=== PATIENT | female | born 1980 | race African-American/Black ===

== ENCOUNTER 2018-01-29 16:53 | Observation (INO) | payer OTHER ==
[2018-01-29 17:02] VITALS: BMI 23.8
--- NOTE | 2018-01-29 17:07 | PDOC ---
Attending Attestation - HPI HPI: 01/29/18 17:53 The patient is a 37 year old female presenting to the ER with left lower abdominal pain since this morning. Patient describes the left lower abdominal pain as nonradiating and 5/10 in severity in the morning, which increased in severity to 10/10 later today after urinating. Patients last meal was prior to arriving to the ER. Patient denies taking any pain meds today. Patient has a history of kidney stones 3 years ago, which she passed after taking medication. Patient is also complaining of a tingling sensation in both of her legs. The patient denies chest pain, shortness of breath, headache and dizziness. Denies fever, chills, nausea, vomit, diarrhea and constipation. Endorses dysuria but denies frequency, urgency and hematuria. Allergies: NKA Past surgical history: Tubal ligation Social history: None reported. <Marielle Mary - Last Filed: 01/29/18 17:53> - Resident Resident Name: Luis Armando Thurman - Physicial Exam PE: 01/29/18 20:08 Agree with resident exam. Patient is alert and oriented x 3 and appears uncomfortable. + diffuse abdominal tenderness, worse in the LLQ. Pelvic exam: + whitish vaginal discharge. + CMT, + L adnexal tenderness. - Medical Decision Making 01/29/18 20:16 Pt presents to the ED complaining of abdominal pain, nausea and vomiting. + LLQ tenderness. + CMT and adnexal tenderness. Concern for UTI, PID, TOA, less likely intestinal pathology. LActate is 3.4. Will treat with IV antibiotics, check transvaginal US and CT abdomen if US is negative, admit for observation and continued antibiotic treatment. <Gladis Boss - Last Filed: 01/29/18 20:21>
[2018-01-29] MEDS ORDERED: ACETAMINOPHEN 1000 MG/100 ML VIAL (NON FORMULARY) IVPB ONE (17:37)
--- NOTE | 2018-01-29 17:56 | PDOC ---
History of Present Illness - General Chief Complaint: Urinary Problem Stated Complaint: ABDOMINAL PAIN Time Seen by Provider: 01/29/18 17:00 - History of Present Illness Initial Comments: 01/29/18 20:13 Patient is a 37 year old female with past medical history of SLE, Hypothyroidism and Seizures (s/p clipping of aneurysm in 2004), presented with sudden onset severe cramping LLQ/suprapubic pain that started upon waking up this morning. Patient noted 10/10 LLQ sharp pain radiating to the suprapubic area, down to the vagina. No medications taken. Patient was still able to eat lunch, but pain became unbearable and she called the ambulance. While she was being transferred to the stretcher by EMS, she noted pain in abdomen radiating down to her inner thighs, causing numbness of both legs. She noted history of kidney stones 3 years ago, where she was given medications and was able to pass it out. Patient denies fevers, chills, nausea, vomiting, headache, dizziness, chest pain, SOB, palpitations, dysuria, hematuria, vaginal discharge. Past History - Past Medical History Allergies/Adverse Reactions: Allergies Allergy/AdvReac Type Severity Reaction Status Date / Time No Known Allergies Allergy Verified 01/29/18 16:59 Home Medications: Ambulatory Orders Levothyroxine [Synthroid -] 0.75 mcg PO DAILY 09/24/15 Hydroxychloroquine So4 [Plaquenil -] 200 mg PO BID 01/30/18 Lamotrigine [Lamictal] 25 mg PO DAILY 01/30/18 Asthma: Yes COPD: No Kidney Stones: Yes Seizures: Yes Thyroid Disease: Yes (hypothYroid) - Surgical History Abdominal Surgery: No Appendectomy: No Cardiac Surgery: No Cholecystectomy: No Lung Surgery: No Neurologic Surgery: Yes (ANEURYSM with clip) - Immunization History Td Vaccination: Yes TDAP Vaccination: Yes Immunization Up to Date: Yes - Suicide/Smoking/Psychosocial Hx Smoking Status: No Smoking History: Current every day smoker Years of Tobacco Use: 0 Have you smoked in the past 12 months: Yes Number of Cigarettes Smoked Daily: 4 Cigars Per Day: 0 Information on smoking cessation initiated: No Hx Alcohol Use: No Drug/Substance Use Hx: No Substance Use Type: None Review of Systems - Review of Systems Constitutional: No: Chills, Fever, Weakness HEENTM: No: Blurred Vision, Ear Discharge, Nose Congestion, Throat Swelling, Difficulty Swallowing Respiratory: No: Cough, Shortness of Breath Cardiac (ROS): No: Chest Pain, Edema, Palpitations ABD/GI: Yes: Poor Appetite, Abdominal cramping. No: Constipated, Diarrhea, Nausea, Vomiting : No: Burning, Dysuria, Discharge Musculoskeletal: No: Back Pain, Muscle Pain Neurological: Yes: Numbness. No: Headache, Tingling, Weakness *Physical Exam - Vital Signs Last Vital Signs Temp Pulse Resp BP Pulse Ox 100.1 F H 96 H 20 98/63 100 01/29/18 17:00 01/29/18 17:00 01/29/18 17:00 01/29/18 17:00 01/29/18 17:00 - Physical Exam Comments: 01/29/18 20:14 General: awake, alert, oriented, crying in pain Head: no signs of acute trauma HEENT: PERRLA, EOMI, sclerae anicteric, Neck: soft, supple, trachea midline, without LAD Lung: clear to auscultation bilaterally Heart: regular rate and rhythm, normal S1/S2, no m,r,g Abdomen: soft, +diffuse tenderness on all quadrants, worst on the LLQ, nondistended, NABS Ext: +2 pulses, warm, no cyanosis, clubbing or edema Neuro: AAOx3, CN II-XII intact, motor 5/5 bilateral UE, 4/5 on bilateral LE limited by LLQ pain, sensation intact, normal gait Pelvic exam: cervix closed with copious whitish discharge, no lesions, no masses. IE:+cervical motion tenderness, +left adnexal tenderness Moderate Sedation - Procedure Monitoring Vital Signs: Procedure Monitoring Vital Signs Temperature 100.1 F H 01/29/18 17:00 Pulse Rate 96 H 01/29/18 17:00 Respiratory Rate 20 01/29/18 17:00 Blood Pressure 98/63 01/29/18 17:00 O2 Sat by Pulse Oximetry (%) 100 01/29/18 17:00 ED Treatment Course - LABORATORY CBC & Chemistry Diagram: 01/31/18 06:15 01/31/18 06:15 Medical Decision Making - Medical Decision Making 01/29/18 17:52 Patient is a 37 year old female with past medical history of SLE, Hypothyroidism and Seizures (s/p clipping of aneurysm in 2004), presented with sudden onset severe cramping LLQ/suprapubic pain that started upon waking up this morning. DDx include but not limited to UTI, nephrolithiasis, ectopic , ovarian cyst, PID, TOA, diverticulosis, colitis CBC, CMP, lactic acid, beta HCG UA, UCx Blood culture IV Tylenol for pain IVF boluses 01/29/18 19:16 Pelvic exam (done with Dr. Boss) Speculum exam: cervix closed with copious whitish discharge, no lesions, no masses Bimanual exam: +cervical motion tenderness, +left adnexal tenderness Transvaginal ultrasound Gonorrhea/chlamydia amplification Started Cefoxitin 2g q6h Doxycycline 100mg q12h IV morphine 4mg 01/29/18 01/29/18 01/29/18 18:00 18:00 18:00 RBC 3.51 L Neutrophils % 87.5 H D Lymphocytes % 7.6 L D Random Glucose 111 H Lactic Acid Urine Protein 1+ H D Urine Urobilinogen 4.0 e.u/dl H Ur Leukocyte Esterase 1+ H D 01/29/18 18:00 RBC Neutrophils % Lymphocytes % Random Glucose Lactic Acid 3.4 H* Urine Protein Urine Urobilinogen Ur Leukocyte Esterase 01/29/18 22:33 REpeat lactic acid Continue IVF TVS (preliminary): No definite evidence of tubo-ovarian abscess No evidence of ovarian torsion. Heterogenous fundal 2.2 cm area of echogenicity most likely represents a fibroid. Subcentimeter hypoechoic areas in the uterus may be due to fibroids. Nabothian cystic process in the cervix. Left ovary 2.0 cm cystic process. 01/29/18 23:[address] Romero. Patient for obs admission. To continue antibiotics. Dr. Romero will see patient in the morning. *DC/Admit/Observation/Transfer Diagnosis at time of Disposition: PID (pelvic inflammatory disease) UTI (urinary tract infection) Qualifiers: Urinary tract infection type: acute cystitis Hematuria presence: with hematuria Qualified Code(s): N30.01 - Acute cystitis with hematuria - Discharge Dispostion Condition at time of disposition: Stable Decision to Admit order: Yes - Referrals - Patient Instructions - Post Discharge Activity
[2018-01-29] MEDS ORDERED: ACETAMINOPHEN INJECTION 100 ML IVPB ONE (17:57)
[2018-01-29 18:10] LABS: BASO % 0.4 % (0-2.0); EOS % 0.3 % (0-4.5); HEMATOCRIT 32.4 % (32.4-45.2); HEMOGLOBIN 11.5 GM/dL (10.7-15.3); LYMPH % 7.6 % (8-40); MCH 32.7 pg (25.7-33.7); MCHC 35.4 g/dl (32.0-36.0); MEAN CELL VOLUME 92.6 fl (80-96); MEAN PLT VOLUME 10.3 fl (7.5-11.1); MONO % 4.2 % (3.8-10.2); NEUT % 87.5 % (42.8-82.8); PLATELET COUNT 170 K/MM3 (134-434); RBC 3.51 M/mm3 (3.60-5.2); RDW 12.6 % (11.6-15.6); WHITE BLOOD COUNT 8.6 K/mm3 (4.0-10.0)
[2018-01-29 18:12] LABS: URINE APPEARANCE CLEAR; URINE BILIRUBIN NEGATIVE (<2.0 mg/dL); URINE COLOR YELLOW; URINE GLUCOSE (UA) NEGATIVE (NEGATIVE); URINE KETONE NEGATIVE (NEGATIVE); URINE LEUK ESTERASE 1+ (NEGATIVE); URINE NITRITE POSITIVE (NEGATIVE); URINE PROTEIN 1+ (NEGATIVE); URINE UROBILINOGEN 4.0 E.U/dl mg/dL (0.2-1.0)
[2018-01-29] MEDS ORDERED: SODIUM CHLORIDE 1,000 ML IV STA ×2 (18:20→20:23)
[2018-01-29 18:25] LABS: EPI CELLS RARE /HPF (FEW); URINE BACTERIA RARE /hpf (NONE SEEN); URINE MUCUS RARE
[2018-01-29 18:47] LABS: ALBUMIN 3.8 g/dl (3.4-5.0); ALK PHOS 109 U/L (45-117); ANION GAP 12 MMOL/L (8-16); BLOOD UREA NITROGEN 8 mg/dL (7-18); CALCIUM 8.6 mg/dL (8.5-10.1); CHLORIDE 103 mmol/L (98-107); CO2 22 mmol/L (21-32); CREATININE 0.9 mg/dL (0.55-1.3); GLUCOSE,RANDOM 111 mg/dL (74-106); POTASSIUM 3.6 mmol/L (3.5-5.1); SGOT/AST 30 U/L (15-37); SGPT/ALT 17 U/L (13-61); SODIUM 137 mmol/L (136-145); TOT PROT 7.5 g/dl (6.4-8.2)
[2018-01-29] MEDS ORDERED: morphine CARPU-JECT 4 MG/1 ML DISP.SYRIN IVPUSH ONE (19:14)
[2018-01-29] MEDS ORDERED: morphine SULFATE 4 MG/ML VIAL ONE (19:43)
[2018-01-29] MEDS ORDERED: SODIUM CHLORIDE 1,000 ML IV SCH (20:00)
[2018-01-29] MEDS ORDERED: DOXYCYCLINE HYCLATE 100 MG VIAL ONE (20:02)
[2018-01-29] MEDS: DOXYCYCLINE INJECTION 100 MG in DEXTROSE 5%-WATER - 100 ML IVPB SCH (20:09)
[2018-01-29] MEDS ORDERED: CEFOXITIN SODIUM 2 GM in DEXTROSE 5%-WATER - 100 ML IVPB SCH (21:00)
--- NOTE | 2018-01-29 23:06 | HP ---
CHIEF COMPLAINT: Abdominal pain PCP: Dr. Casper Lock HISTORY OF PRESENT ILLNESS: 37 year- old female, s/p tubal ligation, and with a PMH also significant for SLE, hypothyroidism, seizure disorder s/p aneurysm repair, migraines, renal calculi, and asthma. Patient presented to the ED with a complaint of acute onset of abdominal pain this morning. The pain increased in severity after patient urinated. Patient describes dysuria and urgency. LMP 01/23/18. Denies fever, sweats, chills. Denies nausea, vomiting, diarrhea, constipation. ER course was notable for: (1) Lactic acid 3.4-->2.0 (2) Cefoxitin x 1; doxycycline x 1 (3) NS x 2L Recent Travel: No PAST MEDICAL HISTORY: SLE Hypothyroidism Seizure disorder Asthma Renal calculi Migraines PAST SURGICAL HISTORY: Aneurysm repair Tubal ligation Social History: Smoking: Alcohol: Drugs: Family History: Allergies No Known Allergies Allergy (Verified 01/29/18 16:59) HOME MEDICATIONS: have not been verified; patient states she takes Plaquenil, Lamictal, and an unidentified migraine medication; need to verify with [facility] Home Medications Medication Instructions Recorded Levothyroxine [Synthroid -] 0.75 mcg PO DAILY 09/24/15 Aspirin [ASA -] 81 mg PO DAILY 01/29/18 REVIEW OF SYSTEMS CONSTITUTIONAL: Absent: fever, chills, diaphoresis, generalized weakness, malaise, loss of appetite, weight change HEENT: Absent: rhinorrhea, nasal congestion, throat pain, throat swelling, difficulty swallowing, mouth swelling, ear pain, eye pain, visual changes CARDIOVASCULAR: Absent: chest pain, syncope, palpitations, irregular heart rate, lightheadedness , peripheral edema RESPIRATORY: Absent: cough, shortness of breath, dyspnea with exertion, orthopnea, wheezing, stridor, hemoptysis GASTROINTESTINAL: Absent: abdominal pain, abdominal distension, nausea, vomiting, diarrhea, constipation, melena, hematochezia GENITOURINARY: +abdominal pain, nausea, vomiting, LLQ tenderness, dysuria, urgency Absent: frequency, hesitancy, hematuria, flank pain, genital pain MUSCULOSKELETAL: Absent: myalgia, arthralgia, joint swelling, back pain, neck pain SKIN: Absent: rash, itching, pallor HEMATOLOGIC/IMMUNOLOGIC: Absent: easy bleeding, easy bruising, lymphadenopathy, frequent infections ENDOCRINE: Absent: unexplained weight gain, unexplained weight loss, heat intolerance, cold intolerance NEUROLOGIC: Absent: headache, focal weakness or paresthesias, dizziness, unsteady gait, seizure, mental status changes, bladder or bowel incontinence PSYCHIATRIC: Absent: anxiety, depression, suicidal or homicidal ideation, hallucinations. PHYSICAL EXAMINATION Vital Signs - 24 hr 01/29/18 17:00 Temperature 100.1 F H Pulse Rate 96 H Respiratory 20 Rate Blood Pressure 98/63 O2 Sat by Pulse 100 Oximetry (%) GENERAL: Awake, alert, and fully oriented, in no acute distress. HEAD: Normal with no signs of trauma. EYES: Pupils equal, round and reactive to light, extraocular movements intact, sclera anicteric, conjunctiva clear. No lid lag. EARS, NOSE, THROAT: Ears normal, nares patent, oropharynx clear without exudates. Moist mucous membranes. LUNGS: Breath sounds equal, clear to auscultation bilaterally. No wheezes, and no crackles. No accessory muscle use. HEART: Regular rate and rhythm, S1 and S2 ABDOMEN: Soft, diffusely tender, +guarding : Pelvic exam deferred MUSCULOSKELETAL: Normal range of motion at all joints. No bony deformities or tenderness. No CVA tenderness. UPPER EXTREMITIES: 2+ pulses, warm, well-perfused. No cyanosis. No clubbing. No peripheral edema. LOWER EXTREMITIES: 2+ pulses, warm, well-perfused. No calf tenderness. No peripheral edema. NEUROLOGICAL: Cranial nerves II-XII intact. Normal speech. Laboratory Results - last 24 hr 01/29/18 01/29/18 01/29/18 18:00 18:00 18:00 WBC 8.6 RBC 3.51 L Hgb 11.5 Hct 32.4 MCV 92.6 MCH 32.7 D MCHC 35.4 RDW 12.6 D Plt Count 170 D MPV 10.3 D Absolute Neuts (auto) 7.5 Neutrophils % 87.5 H D Lymphocytes % 7.6 L D Monocytes % 4.2 Eosinophils % 0.3 D Basophils % 0.4 Nucleated RBC % 0 Sodium 137 Potassium 3.6 Chloride 103 Carbon Dioxide 22 Anion Gap 12 BUN 8 Creatinine 0.9 Creat Clearance w eGFR > 60 Random Glucose 111 H Lactic Acid Calcium 8.6 Total Bilirubin 1.0 AST 30 ALT 17 Alkaline Phosphatase 109 Total Protein 7.5 Albumin 3.8 Beta HCG, Quant < 1.0 Urine Color Yellow Urine Appearance Clear Urine pH 8.0 D Ur Specific [place] 1.015 Urine Protein 1+ H D Urine Glucose (UA) Negative Urine Ketones Negative Urine Blood Negative Urine Nitrite Positive Urine Bilirubin Negative Urine Urobilinogen 4.0 e.u/dl H Ur Leukocyte Esterase 1+ H D Urine WBC (Auto) 47 Urine RBC (Auto) 2 Ur Epithelial Cells Rare Urine Bacteria Rare Urine Mucus Rare 01/29/18 01/29/18 18:00 22:20 WBC RBC Hgb Hct MCV MCH MCHC RDW Plt Count MPV Absolute Neuts (auto) Neutrophils % Lymphocytes % Monocytes % Eosinophils % Basophils % Nucleated RBC % Sodium Potassium Chloride Carbon Dioxide Anion Gap BUN Creatinine Creat Clearance w eGFR Random Glucose Lactic Acid 3.4 H* 2.0 Calcium Total Bilirubin AST ALT Alkaline Phosphatase Total Protein Albumin Beta HCG, Quant Urine Color Urine Appearance Urine pH Ur Specific [place] Urine Protein Urine Glucose (UA) Urine Ketones Urine Blood Urine Nitrite Urine Bilirubin Urine Urobilinogen Ur Leukocyte Esterase Urine WBC (Auto) Urine RBC (Auto) Ur Epithelial Cells Urine Bacteria Urine Mucus ASSESSMENT/PLAN: 37 year- old female, s/p tubal ligation, and with a PMH also significant for SLE, hypothyroidism, seizure disorder s/p aneurysm repair, migraines, renal calculi, and asthma. Admitted for pelvic inflammatory disease and possible tubal ovarian abscess. NEED TO VERIFY HOME MEDICATIONS. Pelvic inflammatory disease +/- Tubal ovarian abscess --Transvaginal ultrasound (Imaging television announcer): no definite evidence of TOA but 2cm cystic process left ovary; fibroids --Pelvic exam in ED: copious white discharge, left adnexal tenderness, + cervical motion tenderness --will continue empiric antibiotics cefoxitin 2g q6h and doxy 100mg q12h --blood and urine cultures collected and sent; chlamydia and gonorrhea pending; esr, crp --DIRECTOR TELEVISION NEWS consult requested --ID consult requested UTI --+leuks, nitrites, pyuria --antibiotics as above Lactic acidosis --resolved with IV fluids SLE --need to verify Plaquenil dose with pharmacy Seizure disorder s/p aneurysm repair --need to verify lamictal dose with pharmacy Migraines --recently seen by Dr. Izaguirre for migraines and prescribed a daily medication, patient cannot recall name of medication or dosage; need to verify with pharmacy Hypothyroidism --TSH pending --continue levothyroxine Asthma --stable DVT prophylaxis: no chemical prophylaxis in event of surgical intervention; SCDs , oob, ambulation Visit type - Emergency Visit Emergency Visit: Yes ED Registration Date: 01/29/18 Care time: The patient presented to the Emergency Department on the above date and was hospitalized for further evaluation of their emergent condition. - New Patient This patient is new to me today: Yes Date on this admission: 01/30/18 - Critical Care Critical Care patient: No
[2018-01-30] MEDS: D5-1/2NS+20 MEQ KCL - 20 MEQ/1,000 ML INFUS.BAG IV SCH ×4 (00:07→23:35)
[2018-01-30] MEDS: CEFOXITIN SODIUM 2 GM in DEXTROSE 5%-WATER - 100 ML IVPB SCH ×4 (04:25→21:00)
[2018-01-30] MEDS: MORPHINE SULFATE 2 MG/ML VIAL IVPUSH PRN (05:05)
[2018-01-30] MEDS ORDERED: ONDANSETRON 4 MG/2 ML VIAL IVPB PRN (06:23)
[2018-01-30] MEDS: DOXYCYCLINE INJECTION 100 MG in DEXTROSE 5%-WATER - 100 ML IVPB SCH ×2 (06:53→18:33)
[2018-01-30] MEDS ORDERED: LEVOTHYROXINE NA 75 MCG TABLET (FP) PO SCH (07:00)
[2018-01-30 07:53] LABS: BASO % 0.1 % (0-2.0); HEMOGLOBIN 10.1 GM/dL (10.7-15.3); LYMPH % 4.7 % (8-40); MCH 30.3 pg (25.7-33.7); MCHC 32.5 g/dl (32.0-36.0); MEAN CELL VOLUME 93.3 fl (80-96); MEAN PLT VOLUME 10.2 fl (7.5-11.1); NEUT % 92.2 % (42.8-82.8); PLATELET COUNT 133 K/MM3 (134-434); RBC 3.32 M/mm3 (3.60-5.2); RDW 12.6 % (11.6-15.6); WHITE BLOOD COUNT 12.8 K/mm3 (4.0-10.0)
[2018-01-30] MEDS ORDERED: DOXYCYCLINE INJECTION 100 MG in DEXTROSE 5%-WATER - 100 ML IVPB SCH (08:00)
[2018-01-30 08:40] LABS: ALK PHOS 84 U/L (45-117); ANION GAP 11 MMOL/L (8-16); BILIRUBIN,TOTAL 0.9 mg/dL (0.2-1); BLOOD UREA NITROGEN 7 mg/dL (7-18); CALCIUM 7.6 mg/dL (8.5-10.1); CHLORIDE 105 mmol/L (98-107); CO2 23 mmol/L (21-32); CREATININE 0.7 mg/dL (0.55-1.3); GLUCOSE,RANDOM 133 mg/dL (74-106); MAGNESIUM 1.4 mg/dL (1.8-2.4); POTASSIUM 3.2 mmol/L (3.5-5.1); SGOT/AST 17 U/L (15-37); SGPT/ALT 15 U/L (13-61); SODIUM 138 mmol/L (136-145); TOT PROT 6.2 g/dl (6.4-8.2)
[2018-01-30] MEDS ORDERED: LEVOTHYROXINE NA 125 MCG TABLET (FP) PO SCH (10:00)
[2018-01-30 10:46] LABS: ANISOCYTOSIS 1+; MACROCYTOSIS 1+; OVALOCYTE 1+; PLATELET ESTIMATE DECREASED
[2018-01-30] MEDS ORDERED: LEVOTHYROXINE NA 125 MCG TABLET (FP) PO ONE (13:36)
[2018-01-30] MEDS ORDERED: ALBUTEROL SO4 8 GM HFA INHALER IH PRN (13:37)
--- NOTE | 2018-01-30 13:38 | PN ---
Progress Note, Physician Chief Complaint: AWAKE ALERT STILL C/O PELVIC PAIN - Current Medication List Current Medications: Active Medications Acetaminophen (Tylenol -) 650 mg PO Q6H PRN PRN Reason: PAIN LEVEL 1-5 Doxycycline Hyclate 100 mg/ (Dextrose) 100 mls @ 100 mls/hr IVPB Q12H SWAPNA Last Admin: 01/30/18 06:53 Dose: 100 mls/hr Cefoxitin Sodium 2 gm/ (Dextrose) 100 mls @ 200 mls/hr IVPB Q6H-IV SWAPNA; Protocol Potassium Chloride/Dextrose/Sod Cl (D5-1/2ns+20 Meq Kcl -) 20 meq in 1,000 mls @ 125 mls/hr IV ASDIR SWAPNA Last Admin: 01/30/18 08:46 Dose: 125 mls/hr Levothyroxine Sodium (Synthroid -) 125 mcg PO ONCE ONE Stop: 01/30/18 13:37 Levothyroxine Sodium (Synthroid -) 200 mcg PO DAILY@0700 SWAPNA Morphine Sulfate (Morphine Sulfate) 2 mg IVPUSH Q6H PRN PRN Reason: PAIN LEVEL 6-10 Last Admin: 01/30/18 05:05 Dose: 2 mg Ondansetron HCl (Zofran Injection) 4 mg IVPB Q6H PRN PRN Reason: NAUSEA Last Admin: 01/30/18 06:57 Dose: 4 mg - Objective Vital Signs: Vital Signs Temperature 98.8 F 01/30/18 07:52 Pulse Rate 95 H 01/30/18 09:28 Respiratory Rate 18 01/30/18 09:28 Blood Pressure 100/52 L 01/30/18 09:28 O2 Sat by Pulse Oximetry (%) 97 01/30/18 09:00 Constitutional: Yes: Mild Distress Eyes: Yes: WNL HENT: Yes: WNL Neck: Yes: WNL Cardiovascular: Yes: WNL Respiratory: Yes: WNL Gastrointestinal: Yes: Tenderness Genitourinary: Yes: WNL Musculoskeletal: Yes: WNL Extremities: Yes: WNL Edema: No Peripheral Pulses WNL: Yes Integumentary: Yes: WNL Wound/Incision: Yes: Clean/Dry Neurological: Yes: WNL ...Motor Strength: WNL Psychiatric: Yes: WNL Labs: CBC, BMP 01/30/18 06:30 01/30/18 06:30 Problem List - Problems (1) PID (pelvic inflammatory disease) Code(s): N73.9 - FEMALE PELVIC INFLAMMATORY DISEASE, UNSPECIFIED (2) UTI (urinary tract infection) Code(s): N39.0 - URINARY TRACT INFECTION, SITE NOT SPECIFIED Qualifiers: Urinary tract infection type: acute cystitis Hematuria presence: with hematuria Qualified Code(s): N30.01 - Acute cystitis with hematuria Assessment/Plan AWAIT PELVIC SONO IV ABX PAIN CONTROL G/C PENDING PO INTAKE TOELRATED
[2018-01-30] MEDS ORDERED: POTASSIUM CHLORIDE TABS 10 MEQ TABLET.ER (FP) PO ONE (13:44)
[2018-01-30] MEDS ORDERED: MAGNESIUM SULF 50% (8.12 MEQ/2 ML-1 GM VIAL) IVPB ONE (13:44)
--- NOTE | 2018-01-30 14:39 | CON.ID ---
Consult Consult Specialty:: infectious disease Referred by:: dr al Reason for Consultation:: abdominal pain and dysuria - History of Present Illness Chief Complaint: admitted yesterday with sudden onset LLQ pain and dysuria History of Present Illness: No diarrhea one episode vomiting due to pain meds no fevers had severe discomfort with urination that has resolved now more diffuse abdominal discomfort she is hungry in ED had +CMT on pelvic exam sexually active, one partner, intermittent condom use no history stds consents to hiv testing - History Source History Provided By: Patient, Medical Record Limitations to Obtaining History: No Limitations - Past Medical History 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, 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 Renal/: Yes: Renal Calculi ...: No Rheumatology: Yes: Lupus Endocrine: Yes: Hypothyroidism - Past Surgical History Additional Surgical History: aneurysm repair - Alcohol/Substance Use Hx Alcohol Use: No - Smoking History Smoking history: Current every day smoker Have you smoked in the past 12 months: Yes Aproximately how many cigarettes per day: 4 - Social History Usual Living Arrangement: With Significant Other ADL: Independent Occupation: unemployed Place of : [facility] History of Recent Travel: No Home Medications - Allergies Allergies/Adverse Reactions: Allergies Allergy/AdvReac Type Severity Reaction Status Date / Time No Known Allergies Allergy Verified 01/29/18 16:59 - Home Medications Home Medications: Ambulatory Orders Levothyroxine [Synthroid -] 0.75 mcg PO DAILY 09/24/15 Hydroxychloroquine So4 [Plaquenil -] 200 mg PO BID 01/30/18 Lamotrigine [Lamictal] 25 mg PO DAILY 01/30/18 Family Disease History - Family Disease History Other Family History: reports mother's torey iwkenroy lupus. fathrs with history of thyroid issues and aneurysms Review of Systems - Review of Systems Constitutional: reports: No Symptoms Eyes: reports: No Symptoms HENT: reports: No Symptoms Neck: reports: No Symptoms Cardiovascular: reports: No Symptoms Respiratory: reports: No Symptoms Gastrointestinal: reports: Abdominal Pain Genitourinary: reports: Dysuria Physical Exam Vital Signs: Vital Signs Temperature 98.8 F 01/30/18 07:52 Pulse Rate 95 H 01/30/18 09:28 Respiratory Rate 18 01/30/18 09:28 Blood Pressure 100/52 L 01/30/18 09:28 O2 Sat by Pulse Oximetry (%) 97 01/30/18 09:00 Constitutional: Yes: Well Nourished, No Distress, Calm Eyes: Yes: Conjunctiva Clear HENT: Yes: Atraumatic, Normocephalic Neck: Yes: Supple, Trachea Midline Cardiovascular: Yes: Regular Rate and Rhythm Respiratory: Yes: Regular, CTA Bilaterally Gastrointestinal: Yes: Normal Bowel Sounds, Soft, Tenderness (diffuse tenderness to palpation) ...Rectal Exam: Yes: Deferred Renal/: No: CVA Tenderness - Left, CVA Tenderness - Right Extremities: Yes: WNL Edema: No Psychiatric: Yes: Alert, Oriented Labs: CBC, BMP 01/30/18 06:30 01/30/18 06:30 Imaging - Results Ultrasound: Pending (transvag sonogram pending) Problem List - Problems (1) PID (pelvic inflammatory disease) Code(s): N73.9 - FEMALE PELVIC INFLAMMATORY DISEASE, UNSPECIFIED (2) UTI (urinary tract infection) Code(s): N39.0 - URINARY TRACT INFECTION, SITE NOT SPECIFIED Qualifiers: Urinary tract infection type: acute cystitis Hematuria presence: with hematuria Qualified Code(s): N30.01 - Acute cystitis with hematuria Assessment/Plan UTI r/o pid awaiting gyneoclogy evaluation f/u pelvic sonogram rpr, hiv test gc/chlamydia naat urine culture- +UA cefoxitin/doxycycline
[2018-01-30] MEDS ORDERED: PT OWN MED DRAWER 7, Y5N ONE ×3 (15:36→21:40)
[2018-01-30] MEDS: lamoTRIgine 25 MG TABLET PO SCH (16:02)
[2018-01-30] MEDS: MONTELUKAST NA 10 MG TABLET PO SCH (21:44)
[2018-01-30] MEDS: ACETAMINOPHEN 325 MG TABLET (FP) PO PRN (21:44)
[2018-01-31] MEDS: CEFOXITIN SODIUM 2 GM in DEXTROSE 5%-WATER - 100 ML IVPB SCH ×4 (02:19→21:28)
[2018-01-31] MEDS ORDERED: PT OWN MED DRAWER 7, Y5N ONE ×3 (06:08→21:16)
[2018-01-31] MEDS: ACETAMINOPHEN 325 MG TABLET (FP) PO PRN ×2 (06:11→21:34)
[2018-01-31] MEDS: LEVOTHYROXINE NA 100 MCG TABLET (FP) PO SCH (06:12)
[2018-01-31] MEDS: DOXYCYCLINE INJECTION 100 MG in DEXTROSE 5%-WATER - 100 ML IVPB SCH ×2 (06:17→18:14)
[2018-01-31] MEDS: D5-1/2NS+20 MEQ KCL - 20 MEQ/1,000 ML INFUS.BAG IV SCH ×2 (06:31→21:28)
[2018-01-31 07:41] LABS: HEMATOCRIT 28.3 % (32.4-45.2); MCH 30.2 pg (25.7-33.7); MEAN CELL VOLUME 94.5 fl (80-96); MEAN PLT VOLUME 10.4 fl (7.5-11.1); PLATELET COUNT 115 K/MM3 (134-434); RBC 2.99 M/mm3 (3.60-5.2); RDW 12.6 % (11.6-15.6); WHITE BLOOD COUNT 12.4 K/mm3 (4.0-10.0)
[2018-01-31 08:04] LABS: ALBUMIN 2.6 g/dl (3.4-5.0); ALK PHOS 107 U/L (45-117); ANION GAP 9 MMOL/L (8-16); BILIRUBIN,TOTAL 0.9 mg/dL (0.2-1); BLOOD UREA NITROGEN 6 mg/dL (7-18); CALCIUM 7.9 mg/dL (8.5-10.1); CHLORIDE 106 mmol/L (98-107); CO2 22 mmol/L (21-32); CREATININE 0.8 mg/dL (0.55-1.3); GLUCOSE,RANDOM 177 mg/dL (74-106); POTASSIUM 3.7 mmol/L (3.5-5.1); SGOT/AST 74 U/L (15-37); SGPT/ALT 51 U/L (13-61); SODIUM 136 mmol/L (136-145); TOT PROT 5.9 g/dl (6.4-8.2)
[2018-01-31 08:25] LABS: RPR NONREACTIVE (NONREACTIVE)
[2018-01-31] MEDS: lamoTRIgine 25 MG TABLET PO SCH (09:26)
[2018-01-31] MEDS: MORPHINE SULFATE 2 MG/ML VIAL IVPUSH PRN ×2 (11:23→17:51)
--- NOTE | 2018-01-31 11:24 | PN ---
Progress Note, Physician Chief Complaint: Abdominal pain Dysuria UTI History of Present Illness: NAD Fever on admission, now afebrile Seen by ID On IV abx To be seen by MOLD DRESSER U/S transvaginal + fibroids, otherwise unremarkable - Current Medication List Current Medications: Active Medications Acetaminophen (Tylenol -) 650 mg PO Q6H PRN PRN Reason: PAIN LEVEL 1-5 Last Admin: 01/31/18 06:11 Dose: 650 mg Albuterol Sulfate (Ventolin Hfa Inhaler -) 2 puff IH Q6H PRN PRN Reason: SHORT OF BREATH/WHEEZING Doxycycline Hyclate 100 mg/ (Dextrose) 100 mls @ 100 mls/hr IVPB Q12H SWAPNA Last Admin: 01/31/18 06:17 Dose: 100 mls/hr Cefoxitin Sodium 2 gm/ (Dextrose) 100 mls @ 200 mls/hr IVPB Q6H-IV SWAPNA; Protocol Last Admin: 01/31/18 09:26 Dose: 200 mls/hr Potassium Chloride/Dextrose/Sod Cl (D5-1/2ns+20 Meq Kcl -) 20 meq in 1,000 mls @ 125 mls/hr IV ASDIR SWAPNA Last Admin: 01/31/18 06:31 Dose: 125 mls/hr Lamotrigine (Lamictal -) 25 mg PO DAILY [facility] Last Admin: 01/31/18 09:26 Dose: 25 mg Levothyroxine Sodium (Synthroid -) 200 mcg PO DAILY@0700 [facility] Last Admin: 01/31/18 06:12 Dose: 200 mcg Montelukast Sodium (Singulair -) 10 mg PO HS [facility] Last Admin: 01/30/18 21:44 Dose: 10 mg Morphine Sulfate (Morphine Sulfate) 2 mg IVPUSH Q6H PRN PRN Reason: PAIN LEVEL 6-10 Last Admin: 01/30/18 05:05 Dose: 2 mg Ondansetron HCl (Zofran Injection) 4 mg IVPB Q6H PRN PRN Reason: NAUSEA Last Admin: 01/30/18 06:57 Dose: 4 mg - Objective Vital Signs: Vital Signs Temperature 98.4 F 01/31/18 06:00 Pulse Rate 78 01/31/18 09:41 Respiratory Rate 18 01/31/18 09:41 Blood Pressure 147/89 01/31/18 09:41 O2 Sat by Pulse Oximetry (%) 97 01/31/18 09:00 Constitutional: Yes: Well Nourished, No Distress, Calm Cardiovascular: Yes: Regular Rate and Rhythm Respiratory: Yes: Regular Gastrointestinal: Yes: Normal Bowel Sounds, Soft Musculoskeletal: Yes: WNL Extremities: Yes: WNL Edema: No Peripheral Pulses WNL: Yes Neurological: Yes: Alert, Oriented Psychiatric: Yes: Alert, Oriented Labs: CBC, BMP 01/31/18 06:15 01/31/18 06:15 Problem List - Problems (1) Hypothyroid Assessment/Plan: -Levothyroxine increased to 100 mcg po daily -repeat Thyroid profile in 4 weeks Code(s): E03.9 - HYPOTHYROIDISM, UNSPECIFIED (2) UTI (urinary tract infection) Assessment/Plan: -ID consult -IV abx UC: Microbiology 01/29/18 18:00 Urine - Urine Judge Urine Culture - Final Escherichia Coli 01/29/18 18:00 Blood - Peripheral Venous Blood Culture - Preliminary NO GROWTH OBTAINED AFTER 48 HOURS, INCUBATION TO CONTINUE FOR 3 DAYS. 01/29/18 18:00 Blood - Peripheral Venous Blood Culture - Preliminary NO GROWTH OBTAINED AFTER 48 HOURS, INCUBATION TO CONTINUE FOR 3 DAYS. Code(s): N39.0 - URINARY TRACT INFECTION, SITE NOT SPECIFIED Qualifiers: Urinary tract infection type: acute cystitis Hematuria presence: with hematuria Qualified Code(s): N30.01 - Acute cystitis with hematuria (3) Anemia Assessment/Plan: -Iron profile pending -2/2 to hypothyroidism? -monitor trend Code(s): D64.9 - ANEMIA, UNSPECIFIED Assessment/Plan see problem list self ambulatory
--- NOTE | 2018-01-31 14:52 | CON.OBG ---
Consult Consult Specialty:: SCR[employer] PRODUCT OWNER Reason for Consultation:: Lower abdominal pain - History of Present Illness Chief Complaint: Abdominal pain History of Present Illness: 37 year- old female, with prior salpingectomy for ectopic , and with a PMH also significant for SLE, hypothyroidism, seizure disorder s/p aneurysm repair, migraines, renal calculi, and asthma, Patient presented to the ED with a complaint of acute onset of abdominal pain this morning. The pain increased in severity after patient urinated. Patient describes dysuria and urgency. LMP 01/23/18. Denies fever, sweats, chills. Denies nausea, vomiting, diarrhea, constipation. SCR[employer] PRODUCT OWNER consulted. I came to see patient. She's lying comfortably in bed. 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 Salpingectomy - Alcohol/Substance Use Hx Alcohol Use: No History of Substance Use: reports: None - Smoking History Smoking history: Current every day smoker Have you smoked in the past 12 months: Yes Aproximately how many cigarettes per day: 4 - Social History Usual Living Arrangement: With Significant Other ADL: Independent Occupation: unemployed History of Recent Travel: No Home Medications - Allergies Allergies/Adverse Reactions: Allergies Allergy/AdvReac Type Severity Reaction Status Date / Time No Known Allergies Allergy Verified 01/29/18 16:59 - Home Medications Home Medications: Ambulatory Orders Levothyroxine [Synthroid -] 0.75 mcg PO DAILY 09/24/15 Hydroxychloroquine So4 [Plaquenil -] 200 mg PO BID 01/30/18 Lamotrigine [Lamictal] 25 mg PO DAILY 01/30/18 Family Disease History - Family Disease History Family History: Unremarkable Other Family History: reports mother's fmily iwth lupus. fathrs with history of thyroid issues and aneurysms Review of Systems - Review of Systems Constitutional: reports: No Symptoms Eyes: reports: No Symptoms HENT: reports: No Symptoms Neck: reports: No Symptoms Cardiovascular: reports: No Symptoms Respiratory: reports: No Symptoms Gastrointestinal: reports: No Symptoms Genitourinary: reports: Pain Breasts: reports: No Symptoms Reported Musculoskeletal: reports: No Symptoms Integumentary: reports: No Symptoms Neurological: reports: No Symptoms Endocrine: reports: No Symptoms Hematology/Lymphatic: reports: No Symptoms Psychiatric: reports: No Symptoms Pain Intensity: 4 Physical Exam-[employer]ODUCT OWNER Vital Signs: Vital Signs Temperature 98.4 F 01/31/18 06:00 Pulse Rate 78 01/31/18 09:41 Respiratory Rate 18 01/31/18 09:41 Blood Pressure 147/89 01/31/18 09:41 O2 Sat by Pulse Oximetry (%) 97 01/31/18 09:00 Constitutional: No: No Distress Eyes: Yes: Conjunctiva Clear HENT: Yes: Atraumatic Neck: Yes: Supple Cardiovascular: Yes: Regular Rate and Rhythm Respiratory: Yes: Regular Gastrointestinal: Yes: Normal Bowel Sounds Pelvis: Yes: Tenderness External Genitalia: Yes: Normal Vaginal Exam: Yes: Normal Cervix: Yes: Normal Uterus: Yes: Freely Moveable Extremities: Yes: WNL Neurological: Yes: Unresponsive, Unsteady Gait ...Motor Strength: WNL Psychiatric: Yes: Alert, Oriented Labs: CBC, BMP 01/31/18 06:15 01/31/18 06:15 Assessment/Plan Pelvic pain Urinary tract infection R/o PID R/O Cystitis Continue IV antibiotic. Consider Ciprofloxacin and Flagyl PO upon discharge. F/U with SCR[employer] PRODUCT OWNER as outpatient
--- NOTE | 2018-01-31 15:06 | PN ---
Progress Note (short form) - Note Progress Note: seen by gynecology still with pelvic pain, exam was uncomfortable still some dysuria but improved Vital Signs Period Temp Pulse Resp BP Sys/Lira Pulse Ox Last 24 Hr 98.1 F-98.7 F 78-94 18-20 100-147/55-89 97-97 cor-rrr llungs clear abd soft,mild pelvic pain to palpation ext no edema CBC, BMP 01/31/18 06:15 01/31/18 06:15 Microbiology 01/29/18 18:00 Urine - Urine Judge Urine Culture - Preliminary Non Lactose Fermenting Gnb 01/29/18 18:00 Blood - Peripheral Venous Blood Culture - Preliminary NO GROWTH OBTAINED AFTER 24 HOURS, INCUBATION TO CONTINUE FOR 4 DAYS. 01/29/18 18:00 Blood - Peripheral Venous Blood Culture - Preliminary NO GROWTH OBTAINED AFTER 24 HOURS, INCUBATION TO CONTINUE FOR 4 DAYS. Laboratory Tests 01/29/18 01/31/18 19:05 06:15 RPR Titer Nonreactive C. trachomatis (CRYSTAL) Pending HIV 1&2 Antibody Screen Negative HIV P24 Antigen Negative N. gonorrhoeae (CRYSTAL) Pending a/p uti ?pid continue cefoxitin/doxy f/u gyne consultation Problem List - Problems (1) PID (pelvic inflammatory disease) Code(s): N73.9 - FEMALE PELVIC INFLAMMATORY DISEASE, UNSPECIFIED (2) UTI (urinary tract infection) Code(s): N39.0 - URINARY TRACT INFECTION, SITE NOT SPECIFIED Qualifiers: Urinary tract infection type: acute cystitis Hematuria presence: with hematuria Qualified Code(s): N30.01 - Acute cystitis with hematuria
[2018-01-31] MEDS: MONTELUKAST NA 10 MG TABLET PO SCH (21:28)
[2018-02-01] MEDS: CEFOXITIN SODIUM 2 GM in DEXTROSE 5%-WATER - 100 ML IVPB SCH ×2 (02:03→09:55)
[2018-02-01] MEDS ORDERED: PT OWN MED DRAWER 7, Y5N ONE ×3 (06:05→11:00)
[2018-02-01] MEDS: LEVOTHYROXINE NA 100 MCG TABLET (FP) PO SCH (06:32)
[2018-02-01] MEDS: DOXYCYCLINE INJECTION 100 MG in DEXTROSE 5%-WATER - 100 ML IVPB SCH (06:32)
[2018-02-01 10:30] VITALS: BP 121/64; PULSE 86; TEMP 98.8
[2018-02-01] MEDS: lamoTRIgine 25 MG TABLET PO SCH (11:33)
[2018-02-01] MEDS ORDERED: oxyCODONE HCL 5 MG TABLET PO PRN (11:41)
--- NOTE | 2018-02-01 11:44 | PN ---
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 U/S transvaginal + fibroids, otherwise unremarkable - Current Medication List Current Medications: Active Medications Acetaminophen (Tylenol -) 650 mg PO Q6H PRN PRN Reason: PAIN LEVEL 1-5 Last Admin: 01/31/18 21:34 Dose: 650 mg Albuterol Sulfate (Ventolin Hfa Inhaler -) 2 puff IH Q6H PRN PRN Reason: SHORT OF BREATH/WHEEZING Doxycycline Hyclate 100 mg/ (Dextrose) 100 mls @ 100 mls/hr IVPB Q12H [facility] Last Admin: 02/01/18 06:32 Dose: 100 mls/hr Cefoxitin Sodium 2 gm/ (Dextrose) 100 mls @ 200 mls/hr IVPB Q6H-IV SWAPNA; Protocol Last Admin: 02/01/18 09:55 Dose: 200 mls/hr Potassium Chloride/Dextrose/Sod Cl (D5-1/2ns+20 Meq Kcl -) 20 meq in 1,000 mls @ 125 mls/hr IV ASDIR SWAPNA Last Admin: 01/31/18 21:28 Dose: 125 mls/hr Lamotrigine (Lamictal -) 25 mg PO DAILY [facility] Last Admin: 02/01/18 11:33 Dose: 25 mg Levothyroxine Sodium (Synthroid -) 200 mcg PO DAILY@0700 [facility] Last Admin: 02/01/18 06:32 Dose: 200 mcg Montelukast Sodium (Singulair -) 10 mg PO HS [facility] Last Admin: 01/31/18 21:28 Dose: 10 mg Ondansetron HCl (Zofran Injection) 4 mg IVPB Q6H PRN PRN Reason: NAUSEA Last Admin: 01/30/18 06:57 Dose: 4 mg - Objective Vital Signs: Vital Signs Temperature 98.8 F 02/01/18 10:00 Pulse Rate 86 02/01/18 10:00 Respiratory Rate 19 02/01/18 10:00 Blood Pressure 121/64 02/01/18 10:00 O2 Sat by Pulse Oximetry (%) 99 02/01/18 09:00 Constitutional: Yes: Well Nourished, No Distress, Calm Cardiovascular: Yes: Regular Rate and Rhythm Respiratory: Yes: Regular Gastrointestinal: Yes: Normal Bowel Sounds, Soft, Tenderness (Suprapubic) Musculoskeletal: Yes: WNL Extremities: Yes: WNL Edema: No Peripheral Pulses WNL: Yes Neurological: Yes: Alert, Oriented Psychiatric: Yes: Alert, Oriented Labs: CBC, BMP 01/31/18 06:15 01/31/18 06:15 Problem List - Problems (1) Hypothyroid Assessment/Plan: -Levothyroxine increased to 100 mcg po daily -repeat Thyroid profile in 4 weeks Code(s): E03.9 - HYPOTHYROIDISM, UNSPECIFIED (2) UTI (urinary tract infection) Assessment/Plan: -ID consult UC: Microbiology 01/29/18 18:00 Urine - Urine Judge Urine Culture - Final Escherichia Coli 01/29/18 18:00 Blood - Peripheral Venous Blood Culture - Preliminary NO GROWTH OBTAINED AFTER 48 HOURS, INCUBATION TO CONTINUE FOR 3 DAYS. 01/29/18 18:00 Blood - Peripheral Venous Blood Culture - Preliminary NO GROWTH OBTAINED AFTER 48 HOURS, INCUBATION TO CONTINUE FOR 3 DAYS. -D/C home on Doxycycline 100 mg po BID x 7 days and Ceftin 500 mg po BID x 7 days Code(s): N39.0 - URINARY TRACT INFECTION, SITE NOT SPECIFIED Qualifiers: Urinary tract infection type: acute cystitis Hematuria presence: with hematuria Qualified Code(s): N30.01 - Acute cystitis with hematuria (3) Anemia Assessment/Plan: -Iron profile pending -2/2 to hypothyroidism? 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
[2018-02-01] MEDS ORDERED: DOCUSATE SODIUM 100 MG CAPSULE (FP) PO SCH (22:00)
[2018-02-02 04:18] LABS: SERUM IRON SATURATION 4 % (15-55); TOTAL IRON BINDING CAPACITY 266 ug/dL (250-450); UIBC 255 ug/dL (131-425)
== END 2018-02-01 14:46 | disposition home or self-care (01) ==
LOC: JER 16:53 → JERBED 23:14 → J6S 01-30 03:17
PROVIDERS: ADMIT Family Medicine; ATTEND Family Medicine
PROC: 3E03329 Introduction of Other Anti-infective into Peripheral Vein, Percutaneous Approach (ICD-10-PCS; principal; 2018-01-29)
PROC: 3E03329 Introduction of Other Anti-infective into Peripheral Vein, Percutaneous Approach (ICD-10-PCS; 2018-01-29)
PROC: 3E033NZ Introduction of Analgesics, Hypnotics, Sedatives into Peripheral Vein, Percutaneous Approach (ICD-10-PCS; 2018-01-29)
DX: N30.01 Acute cystitis with hematuria (principal); B96.20 Unspecified Escherichia coli [E. coli] as the cause of diseases classified elsewhere; N73.9 Female pelvic inflammatory disease, unspecified; E03.9 Hypothyroidism, unspecified; D64.9 Anemia, unspecified; B00.1 Herpesviral vesicular dermatitis; M32.9 Systemic lupus erythematosus, unspecified; G40.909 Epilepsy, unspecified, not intractable, without status epilepticus; D25.9 Leiomyoma of uterus, unspecified; Z87.09 Personal history of other diseases of the respiratory system; Z87.442 Personal history of urinary calculi; F17.210 Nicotine dependence, cigarettes, uncomplicated
CPT/HCPCS: 36415; 76830-TC; 80053; 81003; 81015; 82728; 83540; 83550; 83605; 83735; 84439; 84443; 84702; 85025; 85027; 85651; 86140; 86593; 87040; 87086; 87186; 87389; 87491; 87591; 96365; 96367; 96375; 99283-25; G0378; J0131; J7030

== ENCOUNTER 2019-12-07 10:32 | Emergency (ER) | payer OTHER ==
[2019-12-07 10:41] VITALS: BMI 21.9
[2019-12-07] MEDS ORDERED: SODIUM CHLORIDE 0.9% 500 ML INFUS.BAG IV ONE (11:30)
[2019-12-07 12:04] LABS: BASO % 1.8 % (0-2.0); EOS % 3.9 % (0-4.5); HEMATOCRIT 33.1 % (32.4-45.2); HEMOGLOBIN 11.4 GM/dL (10.7-15.3); LYMPH % 35.3 % (8-40); MCH 32.5 pg (25.7-33.7); MCHC 34.4 g/dl (32.0-36.0); MEAN CELL VOLUME 94.5 fl (80-96); MONO % 9.5 % (3.8-10.2); NEUT % 49.5 % (42.8-82.8); PLATELET COUNT 153 K/MM3 (134-434); WHITE BLOOD COUNT 3.4 K/mm3 (4.0-10.0)
[2019-12-07 12:14] LABS: EPI CELLS 29 /uL (0-25.1); HYALINE CASTS 2 /uL (0-3.1); URINE APPEARANCE CLEAR; URINE BACTERIA 66 /uL (0-1359); URINE BILIRUBIN NEGATIVE (NEGATIVE); URINE COLOR YELLOW; URINE GLUCOSE (UA) NEGATIVE (NEGATIVE); URINE KETONE TRACE (NEGATIVE); URINE LEUK ESTERASE NEGATIVE (NEGATIVE); URINE NITRITE NEGATIVE (NEGATIVE); URINE PROTEIN TRACE (NEGATIVE); URINE RBC 17 /uL (0-23.9); URINE WBC 15 /uL (0-25.8)
[2019-12-07 12:32] LABS: ALBUMIN 3.9 g/dl (3.4-5.0); ALK PHOS 87 U/L (45-117); ANION GAP 5 MMOL/L (8-16); BILIRUBIN,TOTAL 0.5 mg/dL (0.2-1); BLOOD UREA NITROGEN 12.6 mg/dL (7-18); CALCIUM 9.1 mg/dL (8.5-10.1); CHLORIDE 104 mmol/L (98-107); CO2 29 mmol/L (21-32); CREATININE 0.7 mg/dL (0.55-1.3); GLUCOSE,RANDOM 89 mg/dL (74-106); POTASSIUM 3.7 mmol/L (3.5-5.1); SGOT/AST 30 U/L (15-37); SGPT/ALT 19 U/L (13-61); SODIUM 138 mmol/L (136-145); TOT PROT 8.1 g/dl (6.4-8.2)
--- NOTE | 2019-12-07 13:22 | PDOC ---
History of Present Illness - General Chief Complaint: Vaginal Bleeding Stated Complaint: VAGINAL BLEEDING(14 DAYS) Time Seen by Provider: 12/07/19 11:00 History Source: Patient Exam Limitations: No Limitations - History of Present Illness Initial Comments: 12/07/19 13:17 39-year-old female history of SLE, migraines, asthma, hypothyroidism, anemia, seizures, aneurysmal clipping in 2004, , one ectopic , one termination presents complaining of heavy vaginal bleeding x 14 days. Patient reports taking 3 home test in the past 2 weeks which have been negat jessica, last home test was 1 week ago. Reports intermittent dizziness, weakness. Denies abdominal pain, chest pain, shortness of breath, back pain, vomiting, diarrhea, urinary complaints or any other symptoms. Patient has an appointment scheduled with BINITROTOLUENE OPERATOR December 17, 2019. ROS: as above PE: GENERAL: well-appearing, NAD HEAD: NCAT EYES: Pupils equal, round and reactive to light, sclera anicteric, conjunctiva clear ENT: pharynx: no erythema, no exudate, uvula midline NECK: supple CHEST: nontender RESP: clear, no w/r/r CARDIO: rrr, no m/g/r ABD: +BS, soft, nontender, non distended PELVIC: os closed, no cmt, no adnexal ttp, minimal blood in the vault BACK: no midline spinal ttp, no CVAT EXTREMITIES: Normal range of motion, no edema NEUROLOGICAL: Normal speech, normal gait SKIN: Warm, Dry Is this a multiple visit Asthma Patient?: No Past History - Medical History Allergies/Adverse Reactions: Allergies Allergy/AdvReac Type Severity Reaction Status Date / Time No Known Allergies Allergy Verified 12/07/19 10:37 Home Medications: Ambulatory Orders Hydroxychloroquine So4 [Plaquenil -] 200 mg PO BID 01/30/18 Lamotrigine [Lamictal] 25 mg PO DAILY 01/30/18 Acetaminophen [Tylenol .Regular Strength -] 650 mg PO Q6H PRN tablet 02/01/18 Acyclovir 15 gm TP TID 7 Days #1 tube 02/01/18 Albuterol Sulfate Inhaler - [Ventolin HFA Inhaler -] 2 puff IH Q6H PRN #1 inhaler 02/01/18 Cefuroxime Axetil [Ceftin -] 500 mg PO Q12H #14 tablet 02/01/18 Docusate Sodium [Colace -] 300 mg PO HS #90 capsule 02/01/18 Doxycycline Hyclate 100 mg PO BID #14 tablet 02/01/18 Lamotrigine [Lamictal -] 25 mg PO DAILY tablet 02/01/18 Levothyroxine [Synthroid -] 100 mcg PO DAILY #30 tablet 02/01/18 Montelukast Na [Singulair -] 10 mg PO HS #30 tablet 02/01/18 Valacyclovir HCl [Valtrex -] 1,000 mg PO TID #30 tablet 02/01/18 oxyCODONE HCL [Roxicodone -] 5 mg PO Q6H PRN #20 tablet MDD 4 02/01/18 Asthma: Yes COPD: No Kidney Stones: Yes Seizures: Yes Thyroid Disease: Yes (hypothYroid) Other medical history: Lupus - Surgical History Abdominal Surgery: No Appendectomy: No Cardiac Surgery: No Cholecystectomy: No Lung Surgery: No Neurologic Surgery: Yes (ANEURYSM with clip) - Reproductive History Is Patient Now?: No - Immunization History Td Vaccination: Yes TDAP Vaccination: Yes Immunization Up to Date: Yes - Psycho-Social/Smoking History Smoking Status: No Smoking History: Current every day smoker Years of Tobacco Use: 0 Have you smoked in the past 12 months: Yes Number of Cigarettes Smoked Daily: 3 Cigars Per Day: 0 Information on smoking cessation initiated: Yes 'Breaking Loose' booklet given: 01/30/18 - Substance Abuse Hx (Audit-C & DAST Scrn) How often the patient has a drink containing alcohol: Never Score: In Men: 4 or > Positive; In Women: 3 or > Positive: 0 Screen Result (Pos requires Nsg. Audit-10AR): Negative In the last yr the pt used illegal drug/Rx for NonMed reason: No Score: Yes response is considered Positive: 0 Screen Result (Positive result requires Nsg. DAST-10): Negative *Physical Exam - Vital Signs Last Vital Signs Temp Pulse Resp BP Pulse Ox 98.7 F 74 16 115/48 L 100 12/07/19 10:37 12/07/19 10:37 12/07/19 10:37 12/07/19 10:37 12/07/19 10:37 ED Treatment Course - LABORATORY CBC & Chemistry Diagram: 12/07/19 11:50 12/07/19 11:50 - ADDITIONAL ORDERS Additional order review: Laboratory Results 12/07/19 12/07/19 12:00 11:50 Sodium 138 Potassium 3.7 Chloride 104 Carbon Dioxide 29 Anion Gap 5 L BUN 12.6 Creatinine 0.7 Est GFR (CKD-EPI)AfAm 126.49 Est GFR (CKD-EPI)NonAf 109.14 Random Glucose 89 Calcium 9.1 Total Bilirubin 0.5 AST 30 ALT 19 Alkaline Phosphatase 87 Total Protein 8.1 Albumin 3.9 Beta HCG, Quant < 1.0 Urine Color Yellow Urine Appearance Clear Urine pH 6.0 D Ur Specific Morley 1.030 Urine Protein Trace Urine Glucose (UA) Negative Urine Ketones Trace H Urine Blood 3+ H Urine Nitrite Negative Urine Bilirubin Negative Urine Urobilinogen 1.0 Ur Leukocyte Esterase Negative Urine WBC (Auto) 15 Urine RBC (Auto) 17 Urine Casts (Auto) 2 U Epithel Cells (Auto) 29 Urine Bacteria (Auto) 66 12/07/19 11:50 RBC 3.50 L MCV 94.5 MCHC 34.4 RDW 14.0 D MPV 10.0 Neutrophils % 49.5 D Lymphocytes % 35.3 D Monocytes % 9.5 D Eosinophils % 3.9 D Basophils % 1.8 D - RADIOLOGY Radiology Studies Ordered: Category Date Time Status TRANSVAGINAL ULTRASOUND US [US] Stat Ultrasound 12/07/19 12:35 Ordered - Medications Given in the ED: ED Medications Discontinued Medications Generic Name Dose Route Start Last Admin Trade Name Freq PRN Reason Stop Dose Admin Sodium Chloride 1,000 ml 12/07/19 11:30 12/07/19 12:05 Normal Saline - IV 12/07/19 11:31 1,000 ml ONCE ONE Administration Medical Decision Making - Medical Decision Making 12/07/19 13:22 39-year-old female history of SLE, migraines, asthma, hypothyroidism, anemia, seizures, aneurysmal clipping in 2004, , one ectopic , one termination presents complaining of heavy vaginal bleeding x 14 days. Patient reports taking 3 home test in the past 2 weeks which have been negative, last home test was 1 week ago. Reports intermittent dizziness, weakness. Denies abdominal pain, chest pain, shortness of breath, back pain, vomiting, diarrhea, urinary complaints or any other symptoms. Patient has an appointment scheduled with BINITROTOLUENE OPERATOR December 17, 2019. labs, bhcg, ua, ucx transvaginal us IVF re assess 12/07/19 14:04 discussed results with patient bhcg < 1 copies of results provided advised to keep staff nuclear medicine technologist appt 12/17/19 Return to ED if any worsening symptoms Discharge - Discharge Information Problems reviewed: Yes Clinical Impression/Diagnosis: Vaginal bleeding Condition: Stable Disposition: HOME - Admission No - Follow up/Referral Referrals: Casper Lock [Primary Care Provider] - - Patient Discharge Instructions Additional Instructions: Keep your scheduled appointment with BINITROTOLUENE OPERATOR December 17, 2019 Remain hydrated Return to ED if any concerning symptoms - Post Discharge Activity
[2019-12-07 14:17] VITALS: BP 110/67; PULSE 86; TEMP 98.5
== END 2019-12-07 14:17 | disposition home or self-care (01) ==
LOC: JER 10:32
DX: N93.9 Abnormal uterine and vaginal bleeding, unspecified (principal)
CPT/HCPCS: 36415; 76830-TC; 80053; 81003; 84702; 85025; 87086; 99284-25

== ENCOUNTER 2021-04-02 10:39 | Day surgery (SDC) | payer MEDICARE, OTHER ==
[2021-04-02] MEDS ORDERED: FERRIC CARBOXYMALTOSE 750 MG in SODIUM CHLORIDE 250 ML IVPB ONE (12:00)
[2021-04-02 15:08] VITALS: BP 100/62; PULSE 63; TEMP 97.6
== END 2021-04-02 13:00 | disposition home or self-care (01) ==
LOC: FINFUSION 10:39 → FM/S 10:40 → FINFUSION 13:00
PROVIDERS: ATTEND Family Medicine
DX: D50.9 Iron deficiency anemia, unspecified (principal)
CPT/HCPCS: 81025; 96365; J1439

== ENCOUNTER 2021-04-09 10:00 | Day surgery (SDC) | payer MEDICARE, OTHER ==
[2021-04-09] MEDS ORDERED: FERRIC CARBOXYMALTOSE 750 MG in SODIUM CHLORIDE 250 ML IVPB ONE (11:00)
[2021-04-09 14:28] VITALS: BP 105/59; PULSE 63; TEMP 98.6
== END 2021-04-09 14:54 | disposition home or self-care (01) ==
LOC: FINFUSION 10:00 → FM/S 10:07 → FINFUSION 14:54
PROVIDERS: ATTEND Family Medicine
PROC: 3E033GC Introduction of Other Therapeutic Substance into Peripheral Vein, Percutaneous Approach (ICD-10-PCS; principal; 2021-04-09)
DX: D50.9 Iron deficiency anemia, unspecified (principal)
CPT/HCPCS: 81025; 96365; J1439

== ENCOUNTER 2021-09-26 13:03 | Inpatient (IN) | payer MEDICARE, OTHER ==
[2021-09-26] MEDS ORDERED: methylPREDNISolone NA SUCC 125 MG/2 ML VIAL IVPUSH ONE (14:08)
[2021-09-26] MEDS ORDERED: methylPREDNISolone NA SUCC 125 MG/2 ML VIAL ONE (14:16)
[2021-09-26 14:25] LABS: BASO % 0.7 % (0-2.0); EOS % 3.4 % (0-4.5); HEMATOCRIT 35.3 % (32.4-45.2); HEMOGLOBIN 12.2 GM/dL (10.7-15.3); LYMPH % 37.3 % (8-40); MCH 32.9 pg (25.7-33.7); MCHC 34.5 g/dl (32.0-36.0); MEAN CELL VOLUME 95.2 fl (80-96); MEAN PLT VOLUME 9.5 fl (7.5-11.1); NEUT % 49.6 % (42.8-82.8); PLATELET COUNT 150 10^3/uL (134-434); RBC 3.71 M/mm3 (3.60-5.2); RDW 11.9 % (11.6-15.6); WHITE BLOOD COUNT 3.6 K/mm3 (4.0-10.0)
[2021-09-26 14:51] LABS: CALCIUM 8.9 mg/dL (8.5-10.1)
[2021-09-26 14:52] LABS: ALBUMIN 3.7 g/dl (3.4-5.0); BLOOD UREA NITROGEN 8.2 mg/dL (7-18)
[2021-09-26 14:55] LABS: CREATININE 0.6 mg/dL (0.55-1.3)
[2021-09-26 14:56] LABS: BILIRUBIN,TOTAL 0.6 mg/dL (0.2-1)
[2021-09-26 14:57] LABS: TOT PROT 7.4 g/dl (6.4-8.2)
[2021-09-26] MEDS ORDERED: morphine CARPU-JECT 2 MG/1 ML DISP.SYRIN IVPUSH ONE (15:50)
[2021-09-26 17:12] LABS: HCG,QUALITATIVE URINE Negative
[2021-09-26 17:21] LABS: EPI CELLS >36 /uL (0-25.1); HYALINE CASTS 3 /uL (0-3.1); PH,URINE 6.5 (5.0-8.0); URINE APPEARANCE CLOUDY; URINE BACTERIA 1123 /uL (0-1359); URINE BILIRUBIN NEGATIVE (NEGATIVE); URINE COLOR YELLOW; URINE GLUCOSE (UA) NEGATIVE (NEGATIVE); URINE KETONE TRACE (NEGATIVE); URINE LEUK ESTERASE NEGATIVE (NEGATIVE); URINE NITRITE NEGATIVE (NEGATIVE); URINE PROTEIN 1+ (NEGATIVE); URINE RBC 15 /uL (0-23.9); URINE WBC 18 /uL (0-25.8)
[2021-09-26] MEDS ORDERED: ONDANSETRON 4 MG/2 ML VIAL IVPUSH ONE (18:59)
[2021-09-26] MEDS ORDERED: ACETAMINOPHEN 325 MG TABLET (FP) PO PRN (20:21)
[2021-09-26] MEDS ORDERED: SODIUM CHLORIDE 1,000 ML IV SCH (20:30)
[2021-09-26] MEDS: IBUPROFEN 200 MG TABLET PO PRN (21:43)
[2021-09-26] MEDS: INSULIN SLIDING SCALE (NOVOLOG) 1 VIAL SQ SCH (21:48)
[2021-09-26 23:23] LABS: HEMATOCRIT 35.2 % (32.4-45.2); HEMOGLOBIN 12.2 GM/dL (10.7-15.3); MCH 33.2 pg (25.7-33.7); MCHC 34.6 g/dl (32.0-36.0); MEAN PLT VOLUME 9.4 fl (7.5-11.1); PLATELET COUNT 150 10^3/uL (134-434); RBC 3.67 M/mm3 (3.60-5.2); RDW 11.9 % (11.6-15.6); WHITE BLOOD COUNT 5.8 K/mm3 (4.0-10.0)
[2021-09-27] MEDS ORDERED: ALBUTEROL SO4 HFA INHALER IH PRN (00:13)
[2021-09-27] MEDS ORDERED: BACLOFEN 10 MG TABLET (FP) PO PRN (00:13)
[2021-09-27] MEDS ORDERED: LORATADINE 10 MG TABLET PO PRN (00:13)
[2021-09-27] MEDS ORDERED: POLYETHYLENE GLYCOL (HEALTHYLAX) 3350 17 GM PACKET PO PRN (00:13)
[2021-09-27 03:41] VITALS: BMI 22.4
[2021-09-27] MEDS: INSULIN SLIDING SCALE (NOVOLOG) 1 VIAL SQ SCH ×4 (06:14→21:27)
[2021-09-27] MEDS: LEVOTHYROXINE NA 112 MCG TABLET (FP) PO SCH (06:14)
[2021-09-27] MEDS: MULTIVITAMINS (DAILY MVI) TABLET (FP) PO SCH (09:17)
[2021-09-27] MEDS: FERROUS SO4 325 MG TABLET (FP) PO SCH (09:17)
[2021-09-27] MEDS: predniSONE 20 MG TABLET (UD) PO SCH (09:17)
[2021-09-27] MEDS: PANTOPRAZOLE 40 MG TABLET PO SCH (09:17)
[2021-09-27] MEDS: NICOTINE 7 MG/24 HOURS TOPICAL PATCH TD SCH (09:18)
[2021-09-27] MEDS: ENOXAPARIN NA (PORCINE) 40 MG/0.4 ML DISP.SYRIN SQ SCH (09:18)
[2021-09-27 10:05] LABS: HEMATOCRIT 34.8 % (32.4-45.2); HEMOGLOBIN 11.9 GM/dL (10.7-15.3); MCH 32.9 pg (25.7-33.7); MCHC 34.2 g/dl (32.0-36.0); MEAN CELL VOLUME 96.1 fl (80-96); MEAN PLT VOLUME 10.5 fl (7.5-11.1); PLATELET COUNT 153 10^3/uL (134-434); RBC 3.63 M/mm3 (3.60-5.2); RDW 11.6 % (11.6-15.6); WHITE BLOOD COUNT 7.7 K/mm3 (4.0-10.0)
[2021-09-27] MEDS: HYDROXYCHLOROQUINE SO4 200 MG TABLET (FP) PO SCH ×2 (10:14→21:28)
[2021-09-27 10:34] LABS: CALCIUM 9.4 mg/dL (8.5-10.1)
[2021-09-27 10:35] LABS: ALBUMIN 3.5 g/dl (3.4-5.0); BLOOD UREA NITROGEN 16.2 mg/dL (7-18); MAGNESIUM 1.9 mg/dL (1.8-2.4)
[2021-09-27 10:37] LABS: CREATININE 0.8 mg/dL (0.55-1.3); PHOSPHOROUS 2.3 mg/dL (2.5-4.9)
[2021-09-27 10:39] LABS: BILIRUBIN,TOTAL 0.5 mg/dL (0.2-1); TOT PROT 7.2 g/dl (6.4-8.2)
[2021-09-27] MEDS: IBUPROFEN 200 MG TABLET PO PRN (11:40)
[2021-09-27] MEDS ORDERED: NAPH,MB-DB/K PH,MBDB POWDER PACKET PO ONE (17:02)
[2021-09-27] MEDS ORDERED: ACETAMINOPHEN 1000 MG/100 ML BAG IVPB PRN (17:07)
[2021-09-27] MEDS ORDERED: ACETAMINOPHEN 325 MG TABLET (FP) PO PRN (17:12)
[2021-09-27] MEDS: MONTELUKAST NA 10 MG TABLET PO SCH (21:27)
[2021-09-28] MEDS: LEVOTHYROXINE NA 112 MCG TABLET (FP) PO SCH (06:01)
[2021-09-28] MEDS: INSULIN SLIDING SCALE (NOVOLOG) 1 VIAL SQ SCH ×4 (06:13→21:16)
[2021-09-28 07:51] VITALS: RESP 18
[2021-09-28 08:35] LABS: HEMATOCRIT 32.7 % (32.4-45.2); HEMOGLOBIN 11.5 GM/dL (10.7-15.3); MCH 33.3 pg (25.7-33.7); MCHC 35.1 g/dl (32.0-36.0); MEAN CELL VOLUME 94.8 fl (80-96); MEAN PLT VOLUME 9.6 fl (7.5-11.1); PLATELET COUNT 146 10^3/uL (134-434); RBC 3.45 M/mm3 (3.60-5.2); RDW 11.9 % (11.6-15.6); WHITE BLOOD COUNT 9.3 K/mm3 (4.0-10.0)
[2021-09-28 09:09] LABS: CALCIUM 9.2 mg/dL (8.5-10.1)
[2021-09-28 09:10] LABS: BLOOD UREA NITROGEN 16.4 mg/dL (7-18); MAGNESIUM 1.8 mg/dL (1.8-2.4)
[2021-09-28 09:13] LABS: CREATININE 0.7 mg/dL (0.55-1.3); PHOSPHOROUS 3.3 mg/dL (2.5-4.9)
[2021-09-28] MEDS: MULTIVITAMINS (DAILY MVI) TABLET (FP) PO SCH (09:50)
[2021-09-28] MEDS: HYDROXYCHLOROQUINE SO4 200 MG TABLET (FP) PO SCH ×2 (09:50→21:12)
[2021-09-28] MEDS: NICOTINE 7 MG/24 HOURS TOPICAL PATCH TD SCH (09:50)
[2021-09-28] MEDS: PANTOPRAZOLE 40 MG TABLET PO SCH (09:50)
[2021-09-28] MEDS: FERROUS SO4 325 MG TABLET (FP) PO SCH (09:50)
[2021-09-28] MEDS: ENOXAPARIN NA (PORCINE) 40 MG/0.4 ML DISP.SYRIN SQ SCH (09:51)
[2021-09-28] MEDS: predniSONE 20 MG TABLET (UD) PO SCH (09:51)
[2021-09-28] MEDS ORDERED: LEVOTHYROXINE NA 112 MCG TABLET (FP) PO SCH (21:10)
[2021-09-28] MEDS: MONTELUKAST NA 10 MG TABLET PO SCH (21:12)
[2021-09-29] MEDS: INSULIN SLIDING SCALE (NOVOLOG) 1 VIAL SQ SCH ×3 (06:11→16:18)
[2021-09-29] MEDS: metFORMIN HCL 500 MG TABLET (FP) PO SCH ×2 (06:15→16:18)
[2021-09-29] MEDS ORDERED: LIOTHYRONINE SODIUM 5 MCG TABLET PO SCH (07:00)
[2021-09-29] MEDS ORDERED: LEVOTHYROXINE NA 112 MCG TABLET (FP) PO SCH (07:48)
[2021-09-29] MEDS ORDERED: LEVOTHYROXINE SODIUM 100 MCG VIAL IVPUSH ONE (09:00)
[2021-09-29] MEDS: NICOTINE 7 MG/24 HOURS TOPICAL PATCH TD SCH (09:24)
[2021-09-29] MEDS: ENOXAPARIN NA (PORCINE) 40 MG/0.4 ML DISP.SYRIN SQ SCH (09:24)
[2021-09-29] MEDS: PANTOPRAZOLE 40 MG TABLET PO SCH (09:25)
[2021-09-29] MEDS: HYDROXYCHLOROQUINE SO4 200 MG TABLET (FP) PO SCH (09:25)
[2021-09-29] MEDS: FERROUS SO4 325 MG TABLET (FP) PO SCH (09:25)
[2021-09-29] MEDS: MULTIVITAMINS (DAILY MVI) TABLET (FP) PO SCH (09:25)
[2021-09-29] MEDS: predniSONE 20 MG TABLET (UD) PO SCH (09:25)
[2021-09-29 09:32] LABS: HEMOGLOBIN 11.7 GM/dL (10.7-15.3); MCH 32.8 pg (25.7-33.7); MCHC 34.3 g/dl (32.0-36.0); MEAN CELL VOLUME 95.6 fl (80-96); MEAN PLT VOLUME 9.9 fl (7.5-11.1); PLATELET COUNT 149 10^3/uL (134-434); RBC 3.55 M/mm3 (3.60-5.2); RDW 11.9 % (11.6-15.6); WHITE BLOOD COUNT 7.1 K/mm3 (4.0-10.0)
[2021-09-29 09:57] LABS: BLOOD UREA NITROGEN 14.1 mg/dL (7-18); CALCIUM 9.5 mg/dL (8.5-10.1); MAGNESIUM 1.9 mg/dL (1.8-2.4)
[2021-09-29 10:01] LABS: CREATININE 0.9 mg/dL (0.55-1.3); PHOSPHOROUS 3.1 mg/dL (2.5-4.9)
[2021-09-29 14:31] VITALS: BP 109/60; PULSE 71; TEMP 98.2
[2021-09-29] MEDS ORDERED: INSULIN (LEVEMIR) 100 UNITS/ML UNITS SQ ONE (15:16)
[2021-09-30] MEDS ORDERED: LEVOTHYROXINE NA 150 MCG TABLET PO SCH (06:00)
== END 2021-09-29 17:19 | disposition home or self-care (01) | DRG 547 ==
LOC: JER 13:03 → JERBED 15:50 → J6S 18:37
PROVIDERS: ADMIT Internal Medicine; ATTEND Internal Medicine
DX: M32.9 Systemic lupus erythematosus, unspecified (principal); E11.9 Type 2 diabetes mellitus without complications; J45.909 Unspecified asthma, uncomplicated; M06.9 Rheumatoid arthritis, unspecified; E03.9 Hypothyroidism, unspecified; D64.9 Anemia, unspecified; G43.909 Migraine, unspecified, not intractable, without status migrainosus; R06.02 Shortness of breath; R10.9 Unspecified abdominal pain; F17.210 Nicotine dependence, cigarettes, uncomplicated
CPT/HCPCS: 0241U-QW; 36415; 80048; 80053; 81003; 82570; 82962; 83036; 83735; 84100; 84156; 84439; 84443; 84481; 84703; 85025; 85027; 85651; 86038; 86140; 86225; 86235; 86431; 99285-25; J0475

== ENCOUNTER 2024-12-20 18:23 | Observation (INO) | payer MEDICARE, OTHER ==
[2024-12-20 20:22] LABS: MCHC 33.6 g/dl (32.2-35.5); MEAN CELL VOLUME 92.8 fl (79.4-94.8); MEAN PLT VOLUME 11.7 fl (9.4-12.3); RDW 11.8 % (12.2-17.1)
[2024-12-20] MEDS ORDERED: ACETAMINOPHEN INJECTION 100 ML ONE (20:22)
[2024-12-20] MEDS ORDERED: METHOCARBAMOL 500 MG TABLET ONE (20:22)
[2024-12-20 20:26] LABS: URINE APPEARANCE CLEAR; URINE BILIRUBIN NEGATIVE (NEGATIVE); URINE COLOR YELLOW; URINE GLUCOSE (UA) 3+ (NEGATIVE); URINE KETONE NEGATIVE (NEGATIVE); URINE LEUK ESTERASE NEGATIVE (NEGATIVE); URINE NITRITE NEGATIVE (NEGATIVE); URINE PROTEIN NEGATIVE (NEGATIVE); URINE UROBILINOGEN 1.0 mg/dL (0.2-1.0)
[2024-12-20] MEDS: ACETAMINOPHEN 1000 MG/100 ML BAG IVPB ONE (20:37)
[2024-12-20] MEDS: METHOCARBAMOL 500 MG TABLET PO ONE (20:37)
[2024-12-20 20:42] LABS: GLUCOSE,RANDOM 82.0 mg/dL (74-106)
[2024-12-20 20:43] LABS: TOT PROT 8.0 g/dl (6.4-8.2)
[2024-12-20 20:44] LABS: CO2 24.0 mmol/L (21-32)
[2024-12-20 20:45] LABS: ALK PHOS 81.0 U/L (40-150)
[2024-12-20 20:48] LABS: SGOT/AST 42.0 U/L (5-34); SGPT/ALT 14.0 U/L (0-55)
[2024-12-20 20:49] LABS: CREATININE 0.6 mg/dL (0.55-1.3)
[2024-12-20 21:44] LABS: HIV INTERPRETATION NEGATIVE (NEGATIVE)
[2024-12-20 21:45] LABS: HCV DIAGNOSTIC IN-HOUSE W/RFLX NON-REACTIVE (NONREACTIVE)
[2024-12-20] MEDS ORDERED: POTASSIUM CHLORIDE ORAL LIQUID 20 MEQ/15 ML ONE (22:41)
[2024-12-20] MEDS: POTASSIUM CHLORIDE ORAL LIQUID 20 MEQ/15 ML PO ONE (22:56)
[2024-12-21] MEDS ORDERED: ALBUTEROL SO4 HFA INHALER IH PRN (04:06)
[2024-12-21] MEDS ORDERED: POLYETHYLENE GLYCOL (HEALTHYLAX) 3350 17 GM PACKET PO PRN (04:06)
[2024-12-21 06:12] LABS: GLUCOSE,RANDOM 87.0 mg/dL (74-106)
[2024-12-21 06:14] LABS: CO2 26.0 mmol/L (21-32)
[2024-12-21 06:18] LABS: CREATININE 0.64 mg/dL (0.55-1.3)
[2024-12-21 06:20] LABS: MEAN CELL VOLUME 93.6 fl (79.4-94.8); RDW 11.9 % (12.2-17.1)
[2024-12-21 06:22] LABS: IMMATURE PLATELET FRACTION # 10.60 x10^3/uL; MCHC 33.9 g/dl (32.2-35.5); MEAN PLT VOLUME 11.2 fl (9.4-12.3)
[2024-12-21] MEDS: LEVOTHYROXINE NA 112 MCG TABLET (FP) PO SCH (06:32)
[2024-12-21] MEDS: glipiZIDE 5 MG TABLET (FP) PO SCH (06:32)
[2024-12-21] MEDS: HYDROXYCHLOROQUINE SO4 200 MG TABLET (FP) PO SCH (09:33)
[2024-12-21] MEDS: ACETAMINOPHEN 500 MG TABLET (FP) PO PRN (10:00)
[2024-12-21 15:44] VITALS: BMI 16.9
[2024-12-21] MEDS: ATORVASTATIN CA 40 MG TABLET (FP) PO SCH (21:21)
[2024-12-21] MEDS: BACLOFEN 10 MG TABLET (FP) PO PRN (23:40)
[2024-12-22] MEDS: LEVOTHYROXINE NA 125 MCG TABLET (FP) PO SCH (06:26)
[2024-12-22 10:31] VITALS: BP 114/74; PULSE 60; RESP 15; TEMP 98.6
[2024-12-22 11:45] LABS: MCHC 33.8 g/dl (32.2-35.5); MEAN CELL VOLUME 92.4 fl (79.4-94.8); MEAN PLT VOLUME 11.6 fl (9.4-12.3); RDW 11.8 % (12.2-17.1)
== END 2024-12-22 11:30 | disposition home or self-care (01) ==
LOC: JER 18:23 → SUATTDRO 18:23 → JERBED 12-21 03:59 → J4S 12-21 06:19
PROVIDERS: ADMIT Family Medicine; ATTEND Family Medicine
PROC: 3E033NZ Introduction of Analgesics, Hypnotics, Sedatives into Peripheral Vein, Percutaneous Approach (ICD-10-PCS; principal; 2024-12-21)
DX: R55 Syncope and collapse (principal); M32.9 Systemic lupus erythematosus, unspecified; J45.909 Unspecified asthma, uncomplicated; E11.9 Type 2 diabetes mellitus without complications; E03.9 Hypothyroidism, unspecified; R63.4 Abnormal weight loss; D64.9 Anemia, unspecified; G40.909 Epilepsy, unspecified, not intractable, without status epilepticus; I72.9 Aneurysm of unspecified site; W18.39XA Other fall on same level, initial encounter; Y92.89 Other specified places as the place of occurrence of the external cause
CPT/HCPCS: 36415; 70450-TC; 71045-TC-FY; 71250-TC; 71275-TC; 72125-TC; 72170-TC-FY; 80048; 80053; 81003; 82962; 83735; 84443; 84484; 84703; 85025; 85379; 86803; 87389; 93005; 93010; 93306-TC; 95816; 96374; 99285-25; G0378; J0475